=== PATIENT | female | born 1970 | race Hispanic/Latino ===

== ENCOUNTER 2020-02-13 23:20 | Emergency (ER) | payer MEDICARE ==
[2020-02-14] MEDS ORDERED: SODIUM CHLORIDE 0.9% 1000 ML IV SOLN IV ONE (03:55)
--- NOTE | 2020-02-14 04:00 | Emergency Department Report ---
<SARA LOPES - Last Filed: 02/14/20 13:41> ED General Adult HPI - General Chief complaint: Upper Respiratory Infection Stated complaint: MONIQUE/COUGHING Time Seen by Provider: 02/14/20 03:50 - Related Data Home Medications Medication Instructions Recorded Confirmed Last Taken Divalproex ER [DepaKOTE ER] 500 mg PO BID 02/17/20 02/17/20 Unknown Ferrous Sulfate [Iron 325 MG] 325 mg PO BID 02/17/20 02/17/20 Unknown Letrozole (Nf) [Femara (Nf)] 2.5 mg PO QDAY 02/17/20 02/17/20 Unknown Mirtazapine [Remeron 30mg TAB] 30 mg HS 02/17/20 02/17/20 Unknown Naproxen [Naprosyn] 500 mg PO BID 02/17/20 02/17/20 Unknown risperiDONE [RisperDAL] 1 mg PO HS 02/17/20 02/17/20 Unknown Previous Rx's Medication Instructions Recorded Last Taken Type levoFLOXacin [Levaquin] 750 mg PO QDAY #5 tablet 02/14/20 Unknown Rx Allergies Allergy/AdvReac Type Severity Reaction Status Date / Time No Known Allergies Allergy Verified 02/14/20 00:14 ED Past Medical Hx - Medications Home Medications: Home Medications Medication Instructions Recorded Confirmed Last Taken Type levoFLOXacin [Levaquin] 750 mg PO QDAY #5 tablet 02/14/20 Unknown Rx Divalproex ER [DepaKOTE ER] 500 mg PO BID 02/17/20 02/17/20 Unknown History Ferrous Sulfate [Iron 325 MG] 325 mg PO BID 02/17/20 02/17/20 Unknown History Letrozole (Nf) [Femara (Nf)] 2.5 mg PO QDAY 02/17/20 02/17/20 Unknown History Mirtazapine [Remeron 30mg TAB] 30 mg HS 02/17/20 02/17/20 Unknown History Naproxen [Naprosyn] 500 mg PO BID 02/17/20 02/17/20 Unknown History risperiDONE [RisperDAL] 1 mg PO HS 02/17/20 02/17/20 Unknown History ED Medical Decision Making - Lab Data Result diagrams: 02/14/20 05:29 02/14/20 05:29 ED Disposition Clinical Impression: Dyspnea, UTI (urinary tract infection) Disposition: DC-01 TO HOME OR SELFCARE Is pt being admited?: No Does the pt Need Aspirin: No Condition: Stable Instructions: Urinary Tract Infection in Men (ED), Dyspnea (ED) Additional Instructions: return if worse Prescriptions: levoFLOXacin [Levaquin] 750 mg PO QDAY #5 tablet Referrals: PRIMARY CAREMD [Primary Care Provider] - 3-5 Days JOMAR QURESHI MD [Staff Physician] - 3-5 Days Time of Disposition: 13:41 <ANKIT KAMARA - Last Filed: 02/18/20 08:06> ED General Adult HPI - General Source: patient, family Mode of arrival: Wheelchair Limitations: Physical Limitation - History of Present Illness Initial comments: Patient is 49 years old female with history of fibromyalgia and breast and lung cancer in remission. Patient brought to the emergency room accompanied by her caregiver with a chief complaint of cough and difficulty breathing for the last 3 days associated with fever. Patient initial oxygen saturation was 89% on room air improved to 95% on 2 L. Caregiver stated that she noticed her coughing is getting worse. Patient denied any nausea or vomiting. ED Review of Systems ROS: Stated complaint: MONIQUE/COUGHING Other details as noted in HPI Comment: All other systems reviewed and negative Constitutional: chills, fever Respiratory: cough, shortness of breath. 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 hyester. Shunts and stents to head ED Physical Exam - General Limitations: Physical Limitation General appearance: alert, in no apparent distress - Head Head exam: Present: atraumatic, normocephalic, normal inspection - Eye Eye exam: Present: normal appearance - Neck Neck exam: Present: normal inspection, full ROM. Absent: tenderness, meningismus - Respiratory Respiratory exam: Present: normal lung sounds bilaterally - Cardiovascular Cardiovascular Exam: Present: regular rate, normal rhythm, normal heart sounds - GI/Abdominal GI/Abdominal exam: Present: soft, normal bowel sounds. Absent: distended, tenderness, guarding, rebound, rigid, organomegaly, mass, bruit, pulsatile mass, hernia - Extremities Exam Extremities exam: Present: normal inspection, full ROM, normal capillary refill - Back Exam Back exam: Present: normal inspection, full ROM. Absent: CVA tenderness (R), CVA tenderness (L) - Neurological Exam Neurological exam: Present: alert, oriented X3, CN II-XII intact - Psychiatric Psychiatric exam: Present: normal mood - Skin Skin exam: Present: warm ED Course Vital Signs 02/14/20 02/14/20 02/14/20 00:17 03:50 03:52 Temperature 99.2 F 99.1 F Pulse Rate 100 H 85 Respiratory 18 18 Rate Blood Pressure 113/69 Blood Pressure 117/69 [Left] O2 Sat by Pulse 94 98 99 Oximetry 02/14/20 02/14/20 02/14/20 04:00 04:15 04:30 Temperature Pulse Rate Respiratory Rate Blood Pressure 123/76 107/63 111/68 Blood Pressure [Left] O2 Sat by Pulse 100 100 99 Oximetry 02/14/20 02/14/20 02/14/20 04:45 05:01 05:15 Temperature Pulse Rate Respiratory Rate Blood Pressure 111/68 83/65 111/68 Blood Pressure [Left] O2 Sat by Pulse 100 99 99 Oximetry 02/14/20 02/14/20 02/14/20 05:31 05:45 06:01 Temperature Pulse Rate Respiratory Rate Blood Pressure 121/73 121/80 121/38 Blood Pressure [Left] O2 Sat by Pulse 100 100 100 Oximetry 02/14/20 02/14/20 02/14/20 06:15 06:30 06:45 Temperature Pulse Rate Respiratory Rate Blood Pressure 121/80 122/76 116/66 Blood Pressure [Left] O2 Sat by Pulse 100 100 99 Oximetry 02/14/20 02/14/20 02/14/20 07:00 07:15 07:30 Temperature Pulse Rate Respiratory Rate Blood Pressure 124/79 116/77 124/77 Blood Pressure [Left] O2 Sat by Pulse 100 100 100 Oximetry 02/14/20 02/14/20 02/14/20 07:45 08:00 08:19 Temperature Pulse Rate Respiratory Rate Blood Pressure 116/77 118/70 118/70 Blood Pressure [Left] O2 Sat by Pulse 100 99 99 Oximetry 02/14/20 02/14/20 02/14/20 08:31 08:45 09:00 Temperature Pulse Rate 79 82 77 Respiratory 14 17 14 Rate Blood Pressure 125/66 118/70 128/70 Blood Pressure [Left] O2 Sat by Pulse 100 100 99 Oximetry 02/14/20 02/14/20 02/14/20 09:15 09:30 09:45 Temperature Pulse Rate 79 80 Respiratory 17 14 17 Rate Blood Pressure 128/70 117/75 117/75 Blood Pressure [Left] O2 Sat by Pulse 100 99 Oximetry 02/14/20 02/14/20 02/14/20 10:01 10:15 10:31 Temperature Pulse Rate 85 85 91 H Respiratory 16 14 13 Rate Blood Pressure 117/75 117/75 117/75 Blood Pressure [Left] O2 Sat by Pulse 93 100 96 Oximetry 02/14/20 02/14/20 11:01 13:00 Temperature Pulse Rate 83 Respiratory 16 18 Rate Blood Pressure 117/75 129/94 Blood Pressure [Left] O2 Sat by Pulse 99 94 Oximetry ED Medical Decision Making - Lab Data Result diagrams: 02/14/20 05:29 02/14/20 05:29 Critical care attestation.: If time is entered above; I have spent that time in minutes in the direct care of this critically ill patient, excluding procedure time.
[2020-02-14 06:03] LABS: Basophils % (Auto) 0.5 % (0.0-1.8); Eosinophils # (Auto) 0.1 K/mm3 (0.0-0.4); Eosinophils % (Auto) 0.9 % (0.0-4.3); Hematocrit 31.4 % (30.3-42.9); Hemoglobin 10.7 gm/dl (10.1-14.3); Lymphocytes # (Auto) 1.8 K/mm3 (1.2-5.4); Lymphocytes % (Auto) 18.7 % (13.4-35.0); Mean Corpuscular HGB Conc 34 % (30-34); Mean Corpuscular Volume 91 fl (79-97); Monocytes % (Auto) 10.8 % (0.0-7.3); Platelet Count 224 K/mm3 (140-440); Red Blood Count 3.44 M/mm3 (3.65-5.03); Red Cell Distribution Width 16.9 % (13.2-15.2)
[2020-02-14] MEDS ORDERED: SODIUM CHLORIDE 0.9% 1000 ML 3,000 ML ONE (06:20)
[2020-02-14 06:30] LABS: Bilirubin,Urine NEG (Negative); Blood,Urine NEG (Negative); Color,Urine Yellow (Yellow); Hyaline Casts,Urine 4 /LPF; Mucus,Urine FEW /HPF; Protein,Urine <15 mg/dL mg/dL (Negative); Urobilinogen,Urine < 2.0 mg/dL (<2.0)
--- NOTE | 2020-02-14 06:39 | XRay Report ---
CHEST 1 VIEW INDICATION: Chest Pain. COMPARISON: None. FINDINGS: Support devices: Port is in satisfactory position. Ventriculoperitoneal shunt catheter courses over t he left chest. Heart: Normal. Lungs/Pleura: There is elevation of the right hemidiaphragm. There are low lung volumes with presumed bibasilar atelectatic changes. No large effusion, no pneumothorax. IMPRESSION: 1. Low lung volumes with presumed atelectatic changes in the bases. Signer Name: Darrick Salas MD Signed: 02/14/2020 6:34 AM Workstation Name: [id number]
[2020-02-14 07:59] LABS: Alanine Aminotransferase 25 units/L (7-56); Albumin 3.5 g/dL (3.9-5)
[2020-02-14 08:10] LABS: Bilirubin,Direct < 0.2 mg/dL (0-0.2)
--- NOTE | 2020-02-14 08:49 | Cat Scan Report ---
CT chest wo con HISTORY: SOB/dyspnea COMPARISON: None TECHNIQUE: Chest CT exam. All CT scans at this location are performed using CT dose reduction for ALA RA by means of automated exposure control. FINDINGS: CT CHEST: Lungs: Bilateral linear parenchymal opacities most consistent with subsegmental atelectasis and/or sc arring. Postoperative changes from left lower lobectomy. There are a couple of scattered pulmonary no dules measuring up to 2-3 mm for example in the apical segment right upper lobe on image 23 of series 2 and in the left lower lobe on image 56 of series 2. Trachea and Bronchi: No significant abnormality. Mediastinum/Lymph nodes: No lymphadenopathy. Heart: Transvenous right port terminates in the right atrium. No significant abnormality. Vasculature: No significant abnormality. Osseous Structures: No aggressive appearing osseous lesions. Mild loss vertebral body height at T4 wh ich is chronic appearing. Additional Findings: Bilateral breast implants. All sliding-type hiatal hernia. [employer] shunt is seen miller sversing throughout the anterior mid thoracic wall without discontinuity IMPRESSION: 1. Postoperative changes from left lower lobectomy with associated bilateral subsegmental atelectasis and/or scarring. 2. There are couple scattered 2 to 3 mm pulmonary nodules which are most likely benign in etiology. C omparison to prior exams can ensure stability. If none are available. Further attention can be made o n follow up imaging. Signer Name: Gavin Sinclair MD Signed: 02/14/2020 8:44 AM Workstation Name: [id number]
[2020-02-14 10:57] LABS: ABG Base Excess 2.6 mmol/L (-2.0-3.0); ABG HCO3 28.1 mmol/L (20.0-26.0); ABG Methemoglobin 0.5 % (0.0-1.5); ABG Oxygen Saturation 93.3 % (95.0-99.0); ABG PCO2 48.1 mm Hg; ABG PH 7.385 pH Units (7.350-7.450); ABG PO2 66.2 mm Hg (80.0-90.0)
--- NOTE | 2020-02-14 12:36 | Nuclear Medicine Report ---
NUCLEAR MEDICINE PERFUSION LUNG SCAN INDICATION: sob. TECHNIQUE: 5.4 mCi of Tc-99m MAA were given by IV. COMPARISON: Chest radiograph dated today. FINDINGS: PERFUSION: No significant perfusion defects. ADDITIONAL FINDINGS: None. IMPRESSION: 1. Low probability for pulmonary embolism. Signer Name: Carlos Ross MD Signed: 02/14/2020 12:31 PM Workstation Name: [id number]
[2020-02-14] MEDS ORDERED: ACETAMINOPHEN 500 MG TAB PO ONE (13:10)
[2020-02-14 13:12] VITALS: BP 129/94
== END 2020-02-14 14:30 | disposition home or self-care (01) ==
LOC: ED 23:20
DX: N39.0 Urinary tract infection, site not specified (principal); R06.00 Dyspnea, unspecified; Z98.890 Other specified postprocedural states; Z90.710 Acquired absence of both cervix and uterus
CPT/HCPCS: 36415; 71045; 71250; 78580; 80048; 80076; 81001; 82140; 82803; 83880; 84484; 84703; 85025; 87040; 87086; 93005; 96360; 96361; 99285; A9540; J7030